=== PATIENT | male | born 1960 | race Caucasian/White ===

== ENCOUNTER 2017-07-29 13:00 | Emergency (ER) | payer MEDICARE, MEDICAID ==
--- NOTE | 2017-07-29 14:48 | RAD ---
CHEST TWO VIEWS: History: Chest pain. Comparison: 11-21-16 FINDINGS: The lungs show mild increased interstitial markings however, this is a stable finding. The heart and mediastinum are unremarkable. No infiltrate or effusion. IMPRESSION: Prominent interstitial markings which appear stable from prior exam. No acute interval change. POS: [facility]
== END 2017-07-29 14:11 | disposition home or self-care (01) ==
LOC: SCSER 13:00
DX: J11.1 Influenza due to unidentified influenza virus with other respiratory manifestations (principal); F17.210 Nicotine dependence, cigarettes, uncomplicated; I10 Essential (primary) hypertension; E78.5 Hyperlipidemia, unspecified; K21.9 Gastro-esophageal reflux disease without esophagitis; Z79.82 Long term (current) use of aspirin; Z79.899 Other long term (current) drug therapy
CPT/HCPCS: 71020; 99283

== ENCOUNTER 2017-08-04 15:13 | Emergency (ER) | payer MEDICARE, MEDICAID ==
[2017-08-04] MEDS ORDERED: Ketorolac Tromethamine 30 MG/ML VIAL ONE (15:44)
== END 2017-08-04 16:03 | disposition home or self-care (01) ==
LOC: SCSER 15:13
DX: M53.3 Sacrococcygeal disorders, not elsewhere classified (principal); E78.5 Hyperlipidemia, unspecified; K21.9 Gastro-esophageal reflux disease without esophagitis; I10 Essential (primary) hypertension; J44.9 Chronic obstructive pulmonary disease, unspecified; F17.210 Nicotine dependence, cigarettes, uncomplicated; Z79.82 Long term (current) use of aspirin; Z79.899 Other long term (current) drug therapy
CPT/HCPCS: 96372; J1885

== ENCOUNTER 2018-01-29 15:43 | Emergency (ER) | payer MEDICARE, MEDICAID ==
--- NOTE | 2018-01-29 16:23 | RAD ---
PORTABLE UPRIGHT FRONTAL CHEST RADIOGRAPH: Date: 01-29-18 Comparison: 09-13-16 History: Mid chest pain. FINDINGS: There is no pneumothorax, pleural fluid, focal consolidation, or alveolar edema. Heart and mediastina l contours are stable. There is stable pulmonary hyperinflation with stable increased linear intersti tial density noted within both lungs. IMPRESSION: Stable appearance of the chest as described above. POS: [facility]
[2018-01-29 16:31] LABS: ALT (SGPT) 15 U/L (8-55); AST (SGOT) 13 U/L (5-34); Albumin 3.8 g/dL (3.5-5.0); Alkaline Phosphatase 87 U/L (40-150); Anion Gap 12 mmol/L (10-20); BUN (Urea Nitrogen) 16 mg/dL (8.4-25.7); Bilirubin, Total 0.7 mg/dL (0.2-1.2); CK (CPK) 74 U/L (30-200); Calc. Creatinine Clearance 0 mL/min (70-130); Calcium 9.1 mg/dL (7.8-10.44); Carbon Dioxide 26 mmol/L (22-29); Chloride 101 mmol/L (98-107); Estimated GFR-MDRD 90; Globulin 3.2 g/dL (2.4-3.5); Glucose 144 mg/dL (70-105); Potassium 3.7 mmol/L (3.5-5.1); Sodium 135 mmol/L (136-145)
[2018-01-29 16:32] LABS: CKMB 1.9 ng/mL (0-6.6); Troponin I Less than 0.010 ng/mL (< 0.028)
[2018-01-29] MEDS ORDERED: Nitroglycerin 2% Ointment 1 INCH/1 GM Packet ONE (16:33)
[2018-01-29 16:41] LABS: Band 4 % (5-11); Eosinophils 2 % (0-10); Hemoglobin 16.4 g/dL (14.0-18.0); Lymphocytes 21 % (21-51); MDiff Complete? YES; Mean Corpuscular Hemoglobin 30.2 pg (27.0-31.0); Mean Corpuscular Volume 86.3 fl (80.0-94.0); Mean Platelet Volume 6.4 fL (7.4-10.4); Monocytes 4 % (0-10); Neutrophil 64 % (42-75); PLT Morphology Comment Appears Adequate; Platelet Count 218 thou/uL (130-400); RBC Distribution Width 12.2 % (11.5-14.5); RBC Morphology Normal; Reactive Lymphocytes 4 % (0-10); Red Blood Cell (RBC) Count 5.42 mill/uL (4.70-6.10); White Blood Cell (WBC) Count 7.6 thou/uL (4.8-10.8)
== END 2018-01-29 17:25 | disposition left against medical advice (07) ==
LOC: SCSER 15:43
DX: R07.89 Other chest pain (principal); I10 Essential (primary) hypertension; K21.9 Gastro-esophageal reflux disease without esophagitis; E78.5 Hyperlipidemia, unspecified; J44.9 Chronic obstructive pulmonary disease, unspecified; F17.210 Nicotine dependence, cigarettes, uncomplicated; Z71.6 Tobacco abuse counseling
CPT/HCPCS: 71045; 80053; 82550; 82553; 84484; 85025; 93005; 94760; 99406

== ENCOUNTER 2019-05-04 16:12 | Emergency (ER) | payer MEDICARE, MEDICAID ==
[2019-05-04] MEDS ORDERED: Aspirin 325 MG TAB ONE (16:36)
[2019-05-04] MEDS ORDERED: Acetaminophen 500 MG TAB ONE (16:37)
[2019-05-04 16:44] LABS: #Basophils 0.1 thou/uL (0.0-0.2); #Eosinphils 0.1 thou/uL (0.0-0.7); #Lymphocytes 1.2 thou/uL (1.20-3.40); #Neutrophils 10.8 thou/uL (1.40-6.50); %Basophils 0.8 % (0.0-1.0); %Eosinophils 0.9 % (0.0-10.0); %Monocytes 7.3 % (0.0-10.0); Hemoglobin 16.6 g/dL (14.0-18.0); Mean Corpuscular HGB CONC 34.2 g/dL (32.0-36.0); Mean Corpuscular Hemoglobin 30.4 pg (27.0-31.0); Mean Platelet Volume 6.6 fL (7.4-10.4); Platelet Count 243 thou/uL (130-400); RBC Distribution Width 13.4 % (11.5-14.5); Red Blood Cell (RBC) Count 5.46 mill/uL (4.70-6.10); White Blood Cell (WBC) Count 13.2 thou/uL (4.8-10.8)
[2019-05-04 16:57] LABS: ALT (SGPT) 24 U/L (8-55); AST (SGOT) 14 U/L (5-34); Alkaline Phosphatase 90 U/L (40-150); Anion Gap 18 mmol/L (10-20); BUN (Urea Nitrogen) 11 mg/dL (8.4-25.7); Bilirubin, Total 1.6 mg/dL (0.2-1.2); CK (CPK) 100 U/L (30-200); Calc. Creatinine Clearance 0 mL/min (70-130); Calcium 9.4 mg/dL (7.8-10.44); Carbon Dioxide 25 mmol/L (22-29); Chloride 96 mmol/L (98-107); Estimated GFR-MDRD 78; Globulin 3.8 g/dL (2.4-3.5); Glucose 147 mg/dL (70-105); Potassium 3.8 mmol/L (3.5-5.1); Protein, Total 7.8 g/dL (6.0-8.3); Sodium 135 mmol/L (136-145)
[2019-05-04] MEDS ORDERED: Dexamethasone 10 MG/ML VIAL ONE (17:12)
--- NOTE | 2019-05-04 17:20 | RAD ---
FRONTAL RADIOGRAPH CHEST: Date: 05-04-19 Comparison: 01-29-18 History: Intermittent chest pain. FINDINGS: There is mild pulmonary vascular congestion with mild diffuse increased linear interstitial density. Detailed assessment is limited on the basis of body habitus and portable technique. No focal consolid ation or alveolar edema. IMPRESSION: Portable frontal chest radiograph as detailed above. POS: [facility]
== END 2019-05-04 17:32 | disposition home or self-care (01) ==
LOC: SCSER 16:12
DX: R07.89 Other chest pain (principal); E11.9 Type 2 diabetes mellitus without complications; I10 Essential (primary) hypertension; E78.5 Hyperlipidemia, unspecified; E78.00 Pure hypercholesterolemia, unspecified; J44.9 Chronic obstructive pulmonary disease, unspecified; K21.9 Gastro-esophageal reflux disease without esophagitis; F17.210 Nicotine dependence, cigarettes, uncomplicated; Z79.82 Long term (current) use of aspirin; Z79.84 Long term (current) use of oral hypoglycemic drugs; Z79.899 Other long term (current) drug therapy; Z79.51 Long term (current) use of inhaled steroids
CPT/HCPCS: 71045; 80053; 82550; 84484; 85025; 93005; 94760; 96374; J1100

== ENCOUNTER 2019-10-01 10:34 | Day surgery (SDC) | payer MEDICARE, MEDICAID ==
[2019-09-30 10:02] VITALS: BMI 45.7
[2019-10-01] MEDS ORDERED: Fentanyl 100 MCG/2 ML VIAL ONE (11:24)
[2019-10-01] MEDS ORDERED: Midazolam HCl 2 mg/2 ml Vial ONE (11:26)
[2019-10-01] MEDS ORDERED: PROPOFOL 200 MG/20 ML VIAL ONE (12:07)
--- NOTE | 2019-10-01 15:46 | OP ---
DATE OF PROCEDURE: 10/01/2019 PROCEDURES PERFORMED: 1. Esophagogastroduodenoscopy. 2. Colonoscopy with snare polypectomy. PREOPERATIVE DIAGNOSES: 1. Gastroesophageal reflux disease with symptoms not responding to daily omeprazole at 20 mg. 2. History of colon polyps. DESCRIPTION OF PROCEDURE: Informed consent was obtained from the patient. He was sedated with total intravenous anesthesia. The bite block was placed and the endoscope was advanced easily to the second portion of the duodenum and retroflexion was performed in the stomach. The esophagus was normal. The GE junction was normal. The stomach was normal including retroflexed views. The pylorus and first and second portions of the duodenum were normal. The patient was turned around. Rectal exam was performed and was normal. The colonoscope was advanced to the cecum, where the ileocecal valve and appendiceal orifice were clearly identified. The scope was advanced to the terminal ileum which was normal. There were 2 polyps in the descending colon, measuring 7 to 8 mm, removed by snare cautery polypectomy. There were 2 polyps in the descending colon, measuring 5 mm, which were removed by cold snare polypectomy. A 7-mm sigmoid polyp was removed by snare cautery polypectomy. There were 2 polyps noted in retroflexion in the distal rectum, measuring 5 mm, and removed by snare cautery polypectomy. The remainder of the colonic mucosa including retroflexed views was normal. IMPRESSION: 1. Normal esophagogastroduodenoscopy. 2. Two polyps measuring 7 to 8 mm in the descending colon, removed by hot snare. 3. Two polyps, measuring 5 mm, removed from the descending colon by cold snare. 4. A 7-mm sigmoid polyp was removed by hot snare. 5. Two polyps, removed from the rectum, measuring 5 mm, by snare cautery polypectomy. RECOMMENDATIONS: 1. Await histopathology. 2. Continue pantoprazole at 40 mg 30 minutes before breakfast. 3. Follow up in [facility] in 4 weeks to evaluate response to the proton pump inhibitor with Dr. Kat or the physician fast food sales assistant. 4. Surveillance colonoscopy. Timing will be based on pathology results. Job ID: [id number]
== END 2019-10-01 13:30 | disposition home or self-care (01) ==
LOC: SDC 10:34
PROVIDERS: ATTEND Internal Medicine Gastroenterology
PROC: 0DBM8ZZ Excision of Descending Colon, Via Natural or Artificial Opening Endoscopic (ICD-10-PCS; principal; 2019-10-01)
PROC: 0DBN8ZZ Excision of Sigmoid Colon, Via Natural or Artificial Opening Endoscopic (ICD-10-PCS; 2019-10-01)
PROC: 0DBP8ZZ Excision of Rectum, Via Natural or Artificial Opening Endoscopic (ICD-10-PCS; 2019-10-01)
DX: K63.5 Polyp of colon (principal); K62.1 Rectal polyp; K21.9 Gastro-esophageal reflux disease without esophagitis; E78.00 Pure hypercholesterolemia, unspecified; G47.30 Sleep apnea, unspecified; Z79.82 Long term (current) use of aspirin; Z79.84 Long term (current) use of oral hypoglycemic drugs; Z79.899 Other long term (current) drug therapy; Z86.010 Personal history of colon polyps; Z87.891 Personal history of nicotine dependence; Z88.0 Allergy status to penicillin
CPT/HCPCS: 88305; 88341; 88342; J2250; J2704; J3010